=== PATIENT | male | born 1950 | race Caucasian/White ===

== ENCOUNTER 2020-04-06 17:32 | Emergency (ER) | payer OTHER, MEDICARE ==
[~2020-04-06] VITALS: Ht 177.8 cm; Wt 90.7 kg
[~2020-04-06 17:32] MED LIST: AMLO10 PO; Ativan1 MG PO; MAGNESIUM OXID500 MG PO; ONDA8 PO; OPDIVO40 MG/4 ML; PANT40 PO; POTASSIUM GLUCO90 M1 PO; Prednisone10 MG PO; TIOT18 INH; YERVOY50 MG/101
[2020-04-06 18:12] LABS: BASOPHILS ABSOLUTE AUTO 0.03 K/mm3 (0.00-0.23); BASOPHILS PERCENT AUTO 0 % (0-2); EOSINOPHILS ABSOLUTE AUTO 0.01 K/mm3 (0.00-0.68); EOSINOPHILS PERCENT AUTO 0 % (0-6); Hematocrit 39.2 % (37.0-53.0); Hemoglobin 12.8 g/dL (13.5-17.5); IMMATURE GRAN ABSOLUTE AUTO 0.08 K/mm3 (0.00-0.10); IMMATURE GRAN PERCENT AUTO 1 % (0-1); LYMPHOCYTES ABSOLUTE AUTO 1.49 K/mm3 (0.84-5.20); LYMPHOCYTES PERCENT AUTO 11 % (21-46); MONOCYTES ABSOLUTE AUTO 0.92 K/mm3 (0.16-1.47); MONOCYTES PERCENT AUTO 7 % (4-13); Mean Corpuscular HGB Conc 32.7 g/dL (31.5-36.5); Mean Corpuscular Volume 89 fL (80-100); Mean Platelet Volume 9.7 fL (9.1-12.4); NEUTROPHILS ABSOLUTE AUTO 11.62 K/mm3 (1.96-9.15); NEUTROPHILS PERCENT AUTO 82 % (41-73); Platelet Count 335 K/mm3 (150-400); RDW Coefficient Variation 17.2 % (11.7-14.2); RDW Standard Deviation 54.9 fL (35.1-46.3); Red Blood Cell Count 4.41 M/mm3 (4.30-5.90); White Blood Cell Count 14.15 K/mm3 (4.00-11.30)
[2020-04-06 18:30] LABS: Troponin I <0.015 ng/mL (0.000-0.040)
[2020-04-06 18:31] LABS: Alanine Aminotransfer (ALT/SGP 31 U/L (12-78); Albumin, Blood 2.6 g/dL (3.4-5.0); Albumin/Globulin Ratio 0.8 (0.8-1.8); Alk Phos 399 U/L (50-136); Anion Gap 8 mmol/L (6-16); Aspartate Aminotrans (AST/SGOT 130 U/L (12-37); Bilirubin, Total 5.1 mg/dL (0.1-1.0); Blood Urea Nitrogen 25 mg/dL (8-24); Bun/Creatinine Ratio 25.5 (12.0-20.0); CO2, Blood 24 mmol/L (21-32); Calcium, Blood 8.9 mg/dL (8.5-10.1); Chloride, Blood 104 mmol/L (98-108); Creatinine, Blood 0.98 mg/dL (0.60-1.20); Globulin, Blood 3.4 g/dL (2.2-4.0); Glomerular Filtration Rate >60 (60-); Glucose, Blood 96 mg/dL (70-99); Potassium, Blood 4.5 mmol/L (3.5-5.5); Sodium, Blood 136 mmol/L (136-145)
[2020-04-06] MEDS ORDERED: IRON18 MG (20:30)
[2020-04-06] MEDS ORDERED: LACTOBACILLUS1 EAC4 (20:30)
== END 2020-04-06 23:31 | disposition home or self-care (01) ==
LOC: ER 17:32
PROVIDERS: Physician Assistant
DX: E86.0 Dehydration (principal); R63.0 Anorexia; C43.9 Malignant melanoma of skin, unspecified; C78.7 Secondary malignant neoplasm of liver and intrahepatic bile duct; J44.9 Chronic obstructive pulmonary disease, unspecified; Z79.899 Other long term (current) drug therapy
CPT/HCPCS: 36415; 71046; 74177; 80053; 83880; 84484; 85025; 93005; 93010; 96360-59; 96361-59; 99285-25; J7030; Q9967